=== PATIENT | male | born 1965 | race Hispanic/Latino ===

== ENCOUNTER 2021-04-19 12:38 | Emergency (ER) | payer SELFPAY ==
[~2021-04-19] VITALS: Ht 180.3 cm; Wt 93.0 kg
[~2021-04-19 12:38] MED LIST: LORTAB5 PO; NAPROSYN375 MG PO
[2021-04-19] MEDS ORDERED: ALLEGRA-D 2424 HOUR PO (13:18)
[2021-04-19] MEDS ORDERED: ALLOPURINOL300 MG PO (13:18)
[2021-04-19] MEDS ORDERED: FLUTICASONE (13:19)
[2021-04-19] MEDS ORDERED: NAPROXEN250 MG PO (13:19)
[2021-04-19 15:58] VITALS: BP 157/87
[2021-04-19] MEDS ORDERED: MOTRIN400 MG/TAB PO (16:30)
== END 2021-04-19 16:35 | disposition home or self-care (01) | DRG 392 ==
LOC: ED 12:38
DX: R10.32 Left lower quadrant pain (principal)

== ENCOUNTER 2021-08-15 07:06 | Emergency (ER) | payer SELFPAY ==
[~2021-08-15] VITALS: Ht 180.3 cm; Wt 85.0 kg
[~2021-08-15 07:06] MED LIST changes: +ALLEGRA-D 2424 HOUR PO; +ALLOPURINOL300 MG PO; +FLUTICASONE; +MOTRIN400 MG/TAB PO; +NAPROXEN250 MG PO
[2021-08-15 07:13] VITALS: BP 131/82
[2021-08-15 07:16] VITALS: BP 131/82
[2021-08-15] MEDS ORDERED: BACTRIM DS1 TAB PO (08:10)
[2021-08-15] MEDS ORDERED: OMNI-PAC300 MG PO (08:10)
== END 2021-08-15 08:26 | disposition home or self-care (01) | DRG 603 ==
LOC: ED 07:06
PROC: 0H9KXZZ Drainage of Right Lower Leg Skin, External Approach (ICD-10-PCS; principal; 2021-08-15)
DX: L02.415 Cutaneous abscess of right lower limb (principal); B95.61 Methicillin susceptible Staphylococcus aureus infection as the cause of diseases classified elsewhere